=== PATIENT | male | born 1960 | race Caucasian/White ===

== ENCOUNTER 2019-09-21 09:15 | Emergency (ER) | payer OTHER, SELFPAY ==
[~2019-09-21] VITALS: Ht 177.8 cm; Wt 97.7 kg
[2019-09-21 09:59] LABS: BASO % 0.3 % (0.0-1.0); EOS % 0.2 % (0.0-3.0); HEMATOCRIT 51.1 % (42.0-52.0); HEMOGLOBIN 17.1 g/dl (13.5-17.5); LYMPH # 1.4 10^3/uL (1.5-5.0); LYMPH % 16.6 % (24.0-44.0); MEAN CORPUSCULAR HEMOGLOBIN 32.1 pg (27.0-33.0); MEAN CORPUSCULAR HGB CONC 33.5 g/dl (32.0-36.5); MEAN CORPUSCULAR VOLUME 95.9 fl (80.0-96.0); MONO # 0.7 10^3/uL (0.0-0.8); NEUTROPHILS # 6.5 10^3/uL (1.5-8.5); NEUTROPHILS % 74.7 % (36.0-66.0); PLATELET COUNT, AUTOMATED 305 10^3/uL (150-450); RED BLOOD COUNT 5.33 10^6/uL (4.30-6.10); WHITE BLOOD COUNT 8.7 10^3/uL (4.0-10.0)
[2019-09-21] MEDS ORDERED: PANTOPRAZOLE 40MG VIAL (C9113 PER 1) IV ONE (10:00)
[2019-09-21] MEDS ORDERED: METOCLOPRAMIDE INJ 10MG/2ML VIAL (J2765 PER 1) IV ONE (10:00)
[2019-09-21 10:21] LABS: ALBUMIN 3.9 GM/DL (3.2-5.2); ALT/SGPT 27 U/L (12-78); BILIRUBIN,DIRECT 0.2 MG/DL (0.0-0.2); BILIRUBIN,TOTAL 0.8 MG/DL (0.2-1.0); LIPASE 108 U/L (73-393); TOTAL PROTEIN 7.8 GM/DL (6.4-8.2)
[2019-09-21 10:50] LABS: CK-MB VALUE MASS < 1.0 NG/ML (<3.6); CPK CREATINE PHOSPHOKINASE 73 U/L (39-308); MB/CK RELATIVE INDEX 1.37 (< OR =4); TROPONIN I < 0.02 NG/ML (< 0.10)
[2019-09-21] MEDS ORDERED: SUCRALFATE SUSP 1GM/10ML UD PO ONE (11:00)
[2019-09-21] MEDS ORDERED: ISOVUE-370 76% 100ML VIAL As Ordered ONE (11:13)
--- NOTE | 2019-09-21 12:37 | REP ---
CT ABDOMEN AND PELVIS WITH IV CONTRAST: TECHNIQUE: Axial contrast-enhanced images from the lung bases to the pubic symphysis using 100 mL Isovue-370 intravenous contrast material with multiplanar reformations. Visualized lung bases demonstrate no infiltrate. There is an enhancing nodule in the right lobe of the liver 8 mm in diameter. I suspect this represents a small hemangioma. The spleen is normal in size with no intrinsic abnormality. The adrenal glands are normal. No pancreatic mass is seen. There is a tiny subcentimeter cyst in the mid left kidney. There is no hydronephrosis bilaterally. There is no abdominal aortic aneurysm. There is no adenopathy. There is no free air or free fluid. The appendix is normal. The sigmoid colon is diffusely thickened with multiple diverticula suggesting acute or chronic diverticulitis. Urinary bladder is mildly distended and grossly unremarkable. There are heavy prostatic calcifications noted. There are degenerative changes of the spine. IMPRESSION: Acute versus chronic sigmoid diverticulitis. No free air or free fluid. No bowel obstruction. Normal appendix. Enhancing nodule right lobe of the liver, 8 mm in diameter probably represents hemangioma. Subcentimeter cyst left kidney. Electronically Signed by Dieter Armas MD 09/26/2019 06:00 P
[2019-09-21] MEDS ORDERED: NORCO, ANEXSIA 5/325MG TABLET (HYDROcodone/ACETAMINOPHEN) PO ONE (13:15)
[2019-09-21 13:17] VITALS: BP 148/68
[2019-09-21] MEDS ORDERED: FLAG500T PO (13:41)
[2019-09-21] MEDS ORDERED: CIPR-249 PO (13:41)
--- NOTE | 2019-09-21 21:30 | ECGEPIP ---
[facility] - ED Test Date: 2019-09-21 Pat Name: CASEY SILVA Department: Room: - Gender: Male [employer] Chief Inspector: [email or web address] : [id number] Requested By: Susana Jaime Order Number: [id number] Reading MD: Philippe Schuster Measurements Intervals Adams Rate: 52 P: 48 OR: 131 QRS: -29 QRSD: 100 T: 57 QT: 409 QTc: 381 Interpretive Statements SINUS BRADYCARDIA BORDERLINE LEFT AXIS DEVIATION INCOMPLETE RIGHT BUNDLE BRANCH BLOCK NO PRIORS FOR COMPARISON Electronically Signed on 09-21-2019 21:30:43 EDT by Philippe Schuster
== END 2019-09-21 14:00 | disposition home or self-care (01) ==
LOC: M ED 09:15
DX: K57.32 Diverticulitis of large intestine without perforation or abscess without bleeding (principal); R00.1 Bradycardia, unspecified; I45.19 Other right bundle-branch block; K76.9 Liver disease, unspecified; N28.1 Cyst of kidney, acquired; F17.200 Nicotine dependence, unspecified, uncomplicated
CPT/HCPCS: 74177; 80047; 80076; 82550; 82553; 83690; 84484; 85025; 93005; 96374; 96375; 99284; C9113; J2765; Q9967

== ENCOUNTER 2025-02-16 12:21 | Emergency (ER) | payer OTHER, SELFPAY ==
[~2025-02-16] VITALS: Ht 170.2 cm; Wt 83.2 kg
[~2025-02-16 12:21] MED LIST: CIPR-249 PO; FLAG500T PO
[2025-02-16 12:27] VITALS: TEMP 98.2
[2025-02-16 13:10] LABS: BASO # 0.0 10^3/uL (0.0-0.2); BASO % 0.5 % (0.0-1.0); EOS # 0.2 10^3/uL (0.0-0.5); EOS % 1.9 % (0.0-3.0); LYMPH # 1.2 10^3/uL (1.5-5.0); LYMPH % 15.7 % (24.0-44.0); MONO # 0.7 10^3/uL (0.0-0.8); MONO % 8.8 % (2.0-8.0); NEUTROPHILS # 5.7 10^3/uL (1.5-8.5); NEUTROPHILS % 72.8 % (36.0-66.0); PLATELET COUNT, AUTOMATED 349 10^3/uL (150-450)
[2025-02-16 13:38] LABS: INR 0.97
[2025-02-16 13:41] LABS: CALCIUM LEVEL 9.2 MG/DL (8.3-10.6); CARBON DIOXIDE LEVEL 30.0 MMOL/L (20-31); CHLORIDE LEVEL 103.0 MMOL/L (98-107); CREATININE FOR GFR 1.21 MG/DL (0.70-1.30); GLOMERULAR FILTRATION RATE 67.3 (>49); POTASSIUM SERUM 4.3 MMOL/L (3.5-5.1); SODIUM LEVEL 140.0 MMOL/L (136-145)
[2025-02-16] MEDS ORDERED: NAPR-885 PO (16:18)
[2025-02-16] MEDS ORDERED: TIZA10TA PO (16:18)
[2025-02-16] MEDS ORDERED: HOME MED LIST COMPLETE! XX SCH (16:20)
[2025-02-16] MEDS ORDERED: ISOVUE-370 76% 100 ML VIAL As Ordered ONE (17:10)
[2025-02-16 19:43] VITALS: O2SAT 96
[2025-02-16 20:00] VITALS: BP 140/86
== END 2025-02-16 20:33 | disposition home or self-care (01) ==
LOC: M ED 12:21
DX: S40.021A Contusion of right upper arm, initial encounter (principal); X58.XXXA Exposure to other specified factors, initial encounter; Y92.9 Unspecified place or not applicable; Y93.9 Activity, unspecified; Y99.9 Unspecified external cause status; F17.200 Nicotine dependence, unspecified, uncomplicated
CPT/HCPCS: 73030; 73060; 73206; 80048; 85025; 85610; 93041; 93971; 94760; 99285; Q9967